=== PATIENT | male | born 1965 | race Caucasian/White ===

== ENCOUNTER 2017-03-28 07:30 | Emergency (ER) | payer OTHER ==
[2017-03-28] MEDS ORDERED: Sodium Chloride 0.9% 10 ML Syringe FLUSH PRN (07:49)
--- NOTE | 2017-03-28 10:23 | EDM.PDOC ---
ED HPI GENERAL MEDICAL PROBLEM - General Chief Complaint: Chest Pain Stated Complaint: CHEST PAIN Time Seen by Provider: 03/28/17 07:41 Source of Information: Reports: Patient History Limitations: Reports: No Limitations - History of Present Illness INITIAL COMMENTS - FREE TEXT/NARRATIVE: The patient presents with left sided chest pain. This started this morning. He also has some numbness to the right arm but that can happen if he sleeps wrong. He denies shortness of breath, nausea, diaphoresis, vomiting or abdominal pain. He has never had this before. It is mild. He says it is a little sharp. He has a sleep apnea machine and he is wondering if that is the cause. He does not smoke and he has no history of heart disease, HTN, or diabetes. He did take some aspirin at home. Onset: Today Duration: Hour(s): Location: Reports: Chest Quality: Reports: Sharp Severity: Mild Improves with: Reports: None Worsens with: Reports: None Context: Reports: Other (started after he woke up) Associated Symptoms: Reports: Chest Pain. Denies: Cough, Fever/Chills, Nausea/ Vomiting, Shortness of Breath Treatments [employer]: Reports: Aspirin Left Chest Pain Score (Numeric/FACES): 2 - Related Data Allergies Allergy/AdvReac Type Severity Reaction Status Date / Time No Known Allergies Allergy Verified 03/28/17 07:52 Home Meds: Home Meds OXcarbazepine [Trileptal] 300 mg PO DAILY 03/28/17 [History] Past Medical History - Past Health History Medical/Surgical History: Denies Medical/Surgical History Neurological History: Reports: Seizure Social & Family History - Family History Family Medical History: Noncontributory - Tobacco Use Smoking Status *Q: Never Smoker - Alcohol Use Days Per Week of Alcohol Use: 5 Number of Drinks Per Day: 1 Total Drinks Per Week: 5 - Recreational Drug Use Recreational Drug Use: No ED ROS GENERAL - Review of Systems Review Of Systems: See Below Constitutional: Reports: No Symptoms HEENT: Reports: No Symptoms Respiratory: Reports: No Symptoms Cardiovascular: Reports: Chest Pain Endocrine: Reports: No Symptoms GI/Abdominal: Reports: No Symptoms : Reports: No Symptoms Musculoskeletal: Reports: No Symptoms Skin: Reports: No Symptoms Neurological: Reports: No Symptoms ED EXAM, GENERAL - Physical Exam Exam: See Below Exam Limited By: No Limitations General Appearance: Alert, No Apparent Distress Ears: Normal External Exam Nose: Normal Inspection Head: Atraumatic, Normocephalic Neck: Normal Inspection Respiratory/Chest: No Respiratory Distress, Lungs Clear, Normal Breath Sounds Cardiovascular: Regular Rate, Rhythm, No Edema, No Murmur GI/Abdominal: Soft, Non-Tender, No Organomegaly, No Mass Back Exam: Normal Inspection Extremities: Normal Inspection Neurological: Alert, Oriented, No Motor/Sensory Deficits EKG INTERPRETATION EKG Date: 03/28/17 Time: 07:43 Rhythm: NSR Rate (Beats/Min): 63 Soldier: Normal P-Wave: Present QRS: Normal ST-T: Normal QT: Normal Course - Vital Signs Last Recorded V/S: Last Vital Signs Temp 98.5 F 03/28/17 07:44 Pulse 61 03/28/17 09:31 Resp 10 L 03/28/17 09:31 BP 114/79 03/28/17 09:30 Pulse Ox 97 03/28/17 09:31 - Orders/Labs/Meds Orders: Active Orders 24 hr Category Date Time Status Cardiac Monitoring [RC] . DIRECTED Care 03/28/17 07:49 Active EKG 12 Lead [EKG Documentation Completion] [RC] STAT Care 03/28/17 10:03 Active EKG Documentation Completion [RC] STAT Care 03/28/17 07:49 Active Oxygen Therapy [RC] PRN Care 03/28/17 07:49 Active Peripheral IV Care [RC] . DIRECTED Care 03/28/17 07:49 Active Pulse Oximetry [RC] CONTINUOUS Care 03/28/17 07:49 Active Chest 1V Frontal [CR] Stat Exams 03/28/17 07:50 Taken TROPONIN I [CHEM] Stat Lab 03/28/17 10:12 Received Sodium Chloride 0.9% [Saline Flush] Med 03/28/17 07:49 Active 10 ml FLUSH ASDIRECTED PRN Peripheral IV Insertion Adult [OM.PC] Stat Oth 03/28/17 07:49 Ordered Medication Orders Sodium Chloride (Saline Flush) 10 ml FLUSH ASDIRECTED PRN PRN Reason: Keep Vein Open Last Admin: 03/28/17 08:07 Dose: 10 ml Labs: Laboratory Tests 03/28/17 03/28/17 03/28/17 Range/Units 07:42 07:42 07:42 WBC 5.21 (4.23-9.07) K/mm3 RBC 4.45 L (4.63-6.08) M/mm3 Hgb 13.6 L (13.7-17.5) gm/L Hct 39.8 L (40.1-51.0) % MCV 89.4 (79.0-92.2) fl MCH 30.6 (25.7-32.2) pg MCHC 34.2 (32.2-35.5) g/dl RDW Std Deviation 40.9 (35.1-43.9) fL Plt Count 226 (163-337) K/mm3 MPV 10.7 (9.4-12.3) fl Neut % (Auto) 54.4 (34.0-67.9) % Lymph % (Auto) 30.3 (21.8-53.1) % [place] % (Auto) 10.9 (5.3-12.2) % Eos % (Auto) 3.6 (0.8-7.0) Baso % (Auto) 0.4 (0.1-1.2) % Neut # (Auto) 2.83 (1.78-5.38) K/mm3 Lymph # (Auto) 1.58 (1.32-3.57) K/mm3 [place] # (Auto) 0.57 (0.30-0.82) K/mm3 Eos # (Auto) 0.19 (0.04-0.54) K/mm3 Baso # (Auto) 0.02 (0.01-0.08) K/mm3 D-Dimer, Quantitative < 0.19 L (0.19-0.59) mg/L Sodium 135 L (136-145) mEq/L Potassium 4.0 (3.5-5.1) mEq/L Chloride 101 (98-107) mEq/L Carbon Dioxide 28 (21-32) mEq/L Anion Gap 10.0 (5-15) BUN 13 (7-18) mg/dL Creatinine 1.0 (0.7-1.3) mg/dL Est Cr Clr Drug Dosing 92.03 mL/min Estimated GFR (MDRD) > 60 (>60) mL/min BUN/Creatinine Ratio 13.0 L (14-18) Glucose 118 H (74-106) mg/dL Calcium 8.5 (8.5-10.1) mg/dL Total Bilirubin 0.5 (0.2-1.0) mg/dL AST 17 (15-37) U/L ALT 26 (16-63) U/L Alkaline Phosphatase 70 (46-116) U/L Troponin I < 0.017 (0.00-0.056) ng/mL Total Protein 7.3 (6.4-8.2) g/dl Albumin 3.9 (3.4-5.0) g/dl Globulin 3.4 gm/dL Albumin/Globulin Ratio 1.2 (1-2) Meds: Medications Generic Name Dose Route Start Last Admin Trade Name Freq PRN Reason Stop Dose Admin Sodium Chloride 10 ml 03/28/17 07:49 03/28/17 08:07 Saline Flush FLUSH 10 ml ASDIRECTED PRN Administration Keep Vein Open - Re-Assessments/Exams Free Text/Narrative Re-Assessment/Exam: 03/28/17 10:24 I ordered an IV saline lock, EKG, CXR and labs. His EKG looks good. He is in a NSR with no acute changes. His CXR looks good. His labs look good and his troponin is negative. I did a repeat EKG and there is no acute changes or changes from the prior one. I have ordered a repeat troponin. I will call him with the results. He needs to get going. Departure - Departure Time of Disposition: 10:30 Disposition: Home, Self-Care 01 Condition: Good Clinical Impression: Atypical chest pain Referrals: PCP,None [Primary Care Provider] - Gustavo Adames [Physician] - 1 Week Forms: ED Department Discharge Additional Instructions: Please return if you are worse. Follow up with Dr Adames or your doctor next week. I will call you the troponin results. - My Orders Last 24 Hours: My Active Orders 03/28/17 07:49 Cardiac Monitoring [RC] . DIRECTED EKG Documentation Completion [RC] STAT Oxygen Therapy [RC] PRN Peripheral IV Care [RC] . DIRECTED Pulse Oximetry [RC] CONTINUOUS Sodium Chloride 0.9% [Saline Flush] 10 ml FLUSH ASDIRECTED PRN Peripheral IV Insertion Adult [OM.PC] Stat 03/28/17 07:50 Chest 1V Frontal [CR] Stat 03/28/17 10:03 EKG 12 Lead [EKG Documentation Completion] [RC] STAT 03/28/17 10:12 TROPONIN I [CHEM] Stat - Assessment/Plan Last 24 Hours: My Active Orders 03/28/17 07:49 Cardiac Monitoring [RC] . DIRECTED EKG Documentation Completion [RC] STAT Oxygen Therapy [RC] PRN Peripheral IV Care [RC] . DIRECTED Pulse Oximetry [RC] CONTINUOUS Sodium Chloride 0.9% [Saline Flush] 10 ml FLUSH ASDIRECTED PRN Peripheral IV Insertion Adult [OM.PC] Stat 03/28/17 07:50 Chest 1V Frontal [CR] Stat 03/28/17 10:03 EKG 12 Lead [EKG Documentation Completion] [RC] STAT 03/28/17 10:12 TROPONIN I [CHEM] Stat
[2017-03-28 10:31] VITALS: BP 121/89
--- NOTE | 2017-03-29 08:36 | CR ---
Chest: Portable view of the chest was obtained. Comparison: No previous study. Heart size and mediastinum are normal. Lungs are clear. Bony structures are grossly intact. Impression: 1. Nothing acute is appreciated on portable chest x-ray. Diagnostic code #1
== END 2017-03-28 10:31 | disposition home or self-care (01) ==
LOC: JD.ED 07:30
DX: R07.89 Other chest pain (principal)
CPT/HCPCS: 36415; 71010; 80053; 84484; 85025; 85379; 93005; 99285; J7050; 99284

== ENCOUNTER 2022-09-14 10:04 | Emergency (ER) | payer OTHER ==
[2022-09-14 14:22] VITALS: BP 138/87; PULSE 70
== END 2022-09-14 14:15 | disposition home or self-care (01) ==
LOC: JD.ED 10:04
DX: R33.9 Retention of urine, unspecified (principal)
CPT/HCPCS: 51798; 81001; 99283

== ENCOUNTER 2023-03-08 19:51 | Emergency (ER) | payer OTHER ==
[2023-03-08 20:14] VITALS: BP 142/80; PULSE 72
[2023-03-08] MEDS ORDERED: Lidocaine 1% 10 ML MDV INJECT ONE (20:52)
== END 2023-03-08 22:00 | disposition home or self-care (01) ==
LOC: JD.ED 19:51
DX: S61.512A Laceration without foreign body of left wrist, initial encounter (principal); W26.8XXA Contact with other sharp object(s), not elsewhere classified, initial encounter; Y92.029 Unspecified place in mobile home as the place of occurrence of the external cause
CPT/HCPCS: 12002; 99282; J3490

== ENCOUNTER 2024-01-26 17:05 | Emergency (ER) | payer OTHER ==
[2024-01-26] MEDS: Sodium Chloride 0.9% 10 ML Syringe FLUSH PRN (17:25)
[2024-01-26 17:53] LABS: APPEARANCE,URINE SLT CLOUDY (Clear); BILIRUBIN,URINE NEGATIVE (Negative); COLOR,URINE LIGHT YELLOW (Yellow); GLUCOSE,URINE NEGATIVE (Negative); KETONES,URINE NEGATIVE (Negative); LEUKOCYTE ESTERASE,URINE NEGATIVE (Negative); NITRITE,URINE NEGATIVE (Negative); OCCULT BLOOD,URINE 1+ (Negative); PH,URINE 5.5 (5.0-8.0); PROTEIN,URINE 3+ (Negative); UROBILINOGEN,URINE 0.2 (0.2-1.0)
[2024-01-26] MEDS: Sodium Chloride 0.9% 1,000 ML IV SCH (18:00)
[2024-01-26] MEDS: LORazepam 2 MG/ML SDV IVPUSH ONE (18:02)
[2024-01-26] MEDS: levETIRAcetam 1,000 MG in Sodium Chloride 0.9% 100 ML IV ONE (18:04)
[2024-01-26 18:08] LABS: AMPHETAMINES SCREEN, URINE NEGATIVE (CUTOFF=500); BARBITURATE SCREEN,URINE NEGATIVE (CUTOFF=200); BENZODIAZEPINES SCREEN,URINE NEGATIVE (CUTOFF=150); BUPRENORPHINE SCREEN,URINE NEGATIVE (CUTOFF=10); METHADONE SCREEN, URINE NEGATIVE (CUT0FF=200); METHAMPHETAMINES SCREEN, URINE NEGATIVE (CUTOFF=500); OXYCODONE SCREEN,URINE NEGATIVE (CUT0FF=100); THC SCREEN,URINE 20 NG/ML NEGATIVE (CUTOFF=50)
[2024-01-26 18:25] LABS: BASOPHILS PERCENT AUTO 0.3 % (0.0-1.0); EOSINOPHILS ABSOLUTE AUTO 0.1 K/mm3 (0.0-0.4); EOSINOPHILS PERCENT AUTO 0.5 % (0.0-6.0); HEMATOCRIT 39.2 % (42.0-52.0); HEMOGLOBIN 13.7 gm/dl (14.0-18.0); IMMATURE GRAN ABSOLUTE AUTO 0.09 K/mm3 (0.00-0.05); IMMATURE GRAN PERCENT AUTO 0.8 % (0.0-0.4); LYMPHOCYTES ABSOLUTE AUTO 0.8 K/mm3 (1.0-4.8); LYMPHOCYTES PERCENT AUTO 7.7 % (24.0-44.0); MEAN CORPUSCULAR HEMOGLOBIN 30.2 pg (28.0-32.0); MEAN CORPUSCULAR HGB CONC 34.9 g/dl (32.0-36.0); MEAN CORPUSCULAR VOLUME 86.5 fl (83.0-99.0); MEAN PLATELET VOLUME 10.1 fl (9.4-12.4); MONOCYTES ABSOLUTE AUTO 0.8 K/mm3 (0.0-0.8); MONOCYTES PERCENT AUTO 7.4 % (0.0-8.0); NEUTROPHILS ABSOLUTE AUTO 8.8 K/mm3 (1.8-7.7); NEUTROPHILS PERCENT AUTO 83.3 % (41.0-71.0); PLATELET COUNT,PLT 234 K/mm3 (150-400); RED BLOOD CELL COUNT 4.53 M/mm3 (4.52-5.90); WHITE BLOOD CELL COUNT,WBC 10.59 K/mm3 (3.9-11.3)
[2024-01-26 18:58] LABS: A/G RATIO 1.3 (1-2); ALBUMIN 3.8 g/dl (3.4-5.0); BILIRUBIN TOTAL 0.2 mg/dL (0.2-1.0); BUN/CREATININE RATIO 6.7 (14-18); CALCIUM 8.5 mg/dL (8.5-10.1); CREATININE 0.9 mg/dL (0.7-1.3); EST CRCL DRUG DOSING (CG) 94.13 mL/min; PROTEIN TOTAL,TP 6.7 g/dl (6.4-8.2); TSH 1.603 uIU/mL (0.358-3.74)
[2024-01-26] MEDS ORDERED: Sodium Chloride 0.9% 1,000 ML IV SCH (19:00)
[2024-01-26] MEDS: OXcarbazepine 300 MG Tab PO ONE (19:49)
[2024-01-26] MEDS: Calcium Carbonate 500 MG Tab.Chew PO ONE (21:17)
[2024-01-26 21:31] LABS: ANION GAP 11.7 (5-15); BUN/CREATININE RATIO 6.7 (14-18); CALCIUM 7.9 mg/dL (8.5-10.1); CREATININE 0.9 mg/dL (0.7-1.3); EST CRCL DRUG DOSING (CG) 94.13 mL/min; POTASSIUM,K 3.7 mEq/L (3.5-5.1)
[2024-01-26 21:40] LABS: LACTIC ACID 1.4 mmol/L (0.4-2.0)
[2024-01-26 22:59] VITALS: BP 170/111; PULSE 98
[2024-01-27 00:46] LABS: BACTERIA,URINE RARE /hpf (FEW); EPITHELIAL CELLS,URINE NOT SEEN /hpf (0-5); MUCUS,URINE NOT SEEN /hpf (FEW); RBC,URINE 0-5 /hpf (0-5); WBC,URINE 0-5 /hpf (0-5)
[2024-01-29 20:42] LABS: OXCARB/ESLICRBMETAB 11 ug/mL (3-35)
== END 2024-01-26 22:10 | disposition home or self-care (01) ==
LOC: JD.ED 17:05
DX: G40.909 Epilepsy, unspecified, not intractable, without status epilepticus (principal); Z79.899 Other long term (current) drug therapy
CPT/HCPCS: 36415; 70450; 80048; 80053; 80183; 80306; 81001; 83605; 84443; 85025; 93005; 96361; 96365; 96375; 99285; A9270; J1953; J2060; J3490; J7030; 93010; 99284